=== PATIENT | female | born 1995 | race American Indian/Alaskan Native ===

== ENCOUNTER 2019-03-25 19:35 | Emergency (ER) | payer OTHER ==
[2019-03-25] MEDS ORDERED: TYLENOL PO ONE (21:44)
[2019-03-25 22:46] LABS: HCG Qualitative,Urine Negative (Negative)
--- NOTE | 2019-03-25 23:36 | XRay Report ---
PROCEDURE: XR CHEST ROUTINE 2V TECHNIQUE: PA and lateral chest radiographs were obtained. HISTORY: chest pain COMPARISONS: None. FINDINGS: Heart: Normal. Mediastinum/Vessels: Normal. Lungs/Pleural space: Normal. Bony thorax: No acute osseous abnormality. IMPRESSION: Normal examination. This document is electronically signed by Al Reynolds MD., March 25 2019 11:34:38 PM ET
--- NOTE | 2019-03-25 23:47 | Emergency Department Report ---
ED General Adult HPI - General Chief complaint: Chest Pain Stated complaint: HEADACHE/NAUSEA/CHEST PAIN Time Seen by Provider: 03/25/19 21:43 Source: patient, EMS Mode of arrival: Ambulatory Limitations: No Limitations - History of Present Illness Initial comments: This is a 23-year-old emergency room who presents for chest wall pain with cough only 1 week patient denies fevers and chills does have history of allergic rhinitis cough is productive clear sputum at this time. pt states noc fever , temp tonight is 98.2 oral f in triage, pt denies sob no wheezing no back pain no abd pain no n/v no diaphoresis no dizziness no lightheadedness. there is no pain at this time. Onset/Timin -: week(s) Location: chest Severity scale (0 -10): 4 Quality: sharp Consistency: intermittent Improves with: rest Worsens with: other (cough) Associated Symptoms: chest pain, cough. denies: diaphoresis, fever/chills, headaches, loss of appetite, malaise, nausea/vomiting, rash, seizure, shortness of breath, syncope, weakness Treatments Prior to Arrival: none - Related Data Previous Rx's Medication Instructions Recorded Last Taken Type Ibuprofen 800 mg PO TID PRN #30 tablet 03/26/19 Unknown Rx Allergies Allergy/AdvReac Type Severity Reaction Status Date / Time No Known Allergies Allergy Unverified 03/25/19 19:41 ED Review of Systems ROS: Stated complaint: HEADACHE/NAUSEA/CHEST PAIN Other details as noted in HPI Constitutional: denies: chills, fever Eyes: denies: eye pain, eye discharge, vision change ENT: congestion. denies: ear pain, throat pain, dental pain, hearing loss, epistaxis Respiratory: cough. denies: shortness of breath, wheezing Cardiovascular: chest pain (chest wall pain ). denies: palpitations, dyspnea on exertion, orthopnea, edema, syncope, paroxysmal nocturnal dyspnea Endocrine: no symptoms reported Gastrointestinal: denies: abdominal pain, nausea, vomiting, diarrhea Genitourinary: denies: urgency, dysuria, discharge Musculoskeletal: denies: back pain, joint swelling, arthralgia Skin: denies: rash, lesions Neurological: denies: headache, weakness, numbness, paresthesias, confusion, abnormal gait, vertigo Psychiatric: denies: anxiety, depression Hematological/Lymphatic: denies: easy bleeding, easy bruising ED Past Medical Hx - Past Medical History Previous Medical History?: Yes Additional medical history: Cerebral Palsy - Surgical History Past Surgical History?: No - Social History Smoking Status: Never Smoker Substance Use Type: None - Medications Home Medications: Home Medications Medication Instructions Recorded Confirmed Last Taken Type Ibuprofen 800 mg PO TID PRN #30 tablet 03/26/19 Unknown Rx ED Physical Exam - General Limitations: No Limitations General appearance: alert, in no apparent distress - Head Head exam: Present: atraumatic, normocephalic, normal inspection - Eye Eye exam: Present: normal appearance, PERRL, EOMI Pupils: Present: normal accommodation - ENT ENT exam: Present: normal exam, mucous membranes moist, TM's normal bilaterally, normal external ear exam - Expanded ENT Exam Expanded Ear exam: Present: normal external inspection Throat exam: Positive: tonsillar erythema, other (uvula midline clear post nasal drip ). Negative: tonsillomegaly, tonsillar exudate, R peritonsillar mass, L pe ritonsillar mass - Neck Neck exam: Present: normal inspection, full ROM. Absent: tenderness, meningismus, lymphadenopathy, thyromegaly - Respiratory Respiratory exam: Present: normal lung sounds bilaterally, chest wall tenderness (right lateral chest wall tenderness to deep palpation). Absent: respiratory distress, wheezes, rales, rhonchi, stridor, accessory muscle use, decreased breath sounds, prolonged expiratory - Cardiovascular Cardiovascular Exam: Present: regular rate, normal rhythm, normal heart sounds - GI/Abdominal GI/Abdominal exam: Present: soft, normal bowel sounds. Absent: distended, tenderness, bruit, hernia - Rectal Rectal exam: Present: deferred - Extremities Exam Extremities exam: Present: normal inspection, full ROM, normal capillary refill. Absent: tenderness, pedal edema, joint swelling, calf tenderness - Back Exam Back exam: Present: normal inspection, full ROM, muscle spasm. Absent: tend erness, CVA tenderness (R), CVA tenderness (L), rash noted - Neurological Exam Neurological exam: Present: alert, oriented X3, CN II-XII intact, normal gait, reflexes normal. Absent: motor sensory deficit - Psychiatric Psychiatric exam: Present: normal affect, normal mood - Skin Skin exam: Present: warm, dry, intact, normal color. Absent: rash ED Course Vital Signs 03/25/19 03/25/19 20:25 21:54 Temperature 98.2 F Pulse Rate 74 Respiratory 18 16 Rate Blood Pressure 99/63 [Left] O2 Sat by Pulse 99 Oximetry ED Medical Decision Making - Lab Data Labs 03/25/19 Unknown Urine HCG, Qual Negative - EKG Data EKG shows normal: sinus rhythm, axis, intervals, QRS complexes, ST-T waves Rate: normal - EKG Data When compared to previous EKG there are: previous EKG unavailable (no previous EKG ) Interpretation: normal EKG (ekg interp by ed attending: NSR , HR: 65, No ST Elevation, no ectopy , reviewed by me) - Radiology Data Radiology results: report reviewed, image reviewed Findings [facility] [address] [place] [address] XRay Report Signed Patient: SHARON SARABIA MR#: [id number] : 1995 Acct:[id number] Age/Sex: 23 / F ADM Date: 03/25/19 Loc: ED Attending Dr: Ordering Physician: CASSIDY ARAMBULA NP Date of Service: 03/25/19 Procedure(s): XR chest routine 2V Accession Number(s): [id number] cc: CASSIDY ARAMBULA NP Fluoro Time In Minutes: PROCEDURE: XR CHEST ROUTINE 2V TECHNIQUE: PA and lateral chest radiographs were obtained. HISTORY: chest pain COMPARISONS: None. FINDINGS: Heart: Normal. Mediastinum/Vessels: Normal. Lungs/Pleural space: Normal. Bony thorax: No acute osseous abnormality. IMPRESSION: Normal examination. This document is electronically signed by Guicho Reynolds MD., March 25 2019 11:34:38 PM ET Transcribed By: [facility] [place] Dictated By: GUICHO REYNOLDS Electronically Authenticated By: GUICHO REYNOLDS Signed Date/Time: 03/25/192335 DD/ 27 TD/TT: 03/25/192327 - Medical Decision Making this is chest wall pain that is reproducible to palpation, and cough , CXR: clear normal no opacities no infiltrates, EKG: NSR no ST Elevation, CP is resolved at this time. plan: dc to home with rx for nsaids prn pain , pt will follow up with pcp in 2-3 days return to ed if symptoms worsen, pt verbalized agreement and understanding of discharge paln, pt dc'd to home stable condition at this time. Critical care attestation.: If time is entered above; I have spent that time in minutes in the direct care of this critically ill patient, excluding procedure time. ED Disposition Clinical Impression: Chest wall pain Disposition: DC-01 TO HOME OR SELFCARE Is pt being admited?: No Does the pt Need Aspirin: No Condition: Stable Instructions: Costochondritis (ED) Prescriptions: Ibuprofen 800 mg PO TID PRN #30 tablet PRN Reason: pain Referrals: HÉCTOR ESCOBAR [Other] - 3-5 Days Forms: Work/School Release Form(ED) Time of Disposition: 00:10
[2019-03-26 00:21] VITALS: BP 97/63
== END 2019-03-26 00:20 | disposition home or self-care (01) ==
LOC: ED 19:35
DX: R07.89 Other chest pain (principal); R05 Cough; Z86.69 Personal history of other diseases of the nervous system and sense organs
CPT/HCPCS: 71046; 81025; 93005; 93010